=== PATIENT | female | born 1950 | race Caucasian/White ===

== ENCOUNTER 2016-09-24 10:07 | Day surgery (SDC) | payer MEDICARE, BC ==
[2016-09-22 15:29] LABS: HEMATOCRIT 36.5 % (36.0-48.0); HEMOGLOBIN 13.1 g/dL (12.0-16.0)
[2016-09-22 15:41] LABS: BUN (BLOOD UREA NITROGEN) 24 MG/DL (6-23); CALCIUM, SERUM 9.3 MG/DL (8.5-10.4); CHLORIDE, SERUM 104 MMOL/L (96-112); CO2 (CARBON DIOXIDE) 25 MMOL/L (24-34); GFR AFRICAN AMERICAN 54 ML/MIN (>=60); GFR NON AFRICAN AMERICAN 47 ML/MIN (>=60); GLUCOSE, SERUM 232 MG/DL (60-99); POTASSIUM, SERUM 4.2 MMOL/L (3.5-5.3); SODIUM, SERUM 140 MMOL/L (135-148)
[~2016-09-24 10:07] MED LIST: ASAB PO; CO Q-10100 MG PO; CORDARONE PO; CRESTOR20 MG PO; D 5000; DIABETA5 PO; DSS PO; FLEXERIL5 MG PO; GLUCOPHAGE1000 MG PO; GLUCPH PO; KRILLOIL PO; LEVEMFLXPN SC; LIPITOR80 MG PO; LOP25 PO; LOTE10 PO; MOBIC15 MG PO; NITROSTAT0.4 MG SL; NORCO1 TA2 PO; NOVOPEN SC; PLAVIX PO; VICODINTAB PO; VITAMIN D31000 UNIT PO; ZOCOR40 PO
[2016-10-12] MEDS ORDERED: [UNRECOGNIZED DRUG - OTHER] (11:01)
[2016-10-12] MEDS ORDERED: DIOV80 PO (11:03)
[2016-10-12] MEDS ORDERED: PLAVIX PO (11:04)
[2016-10-12] MEDS ORDERED: PLAVIX300 MG PO (14:17)
[2016-10-20] MEDS ORDERED: TRADJENTA5 MG PO (13:02)
[2017-01-17] MEDS ORDERED: CARTIA XT240 MG/24 PO (10:00)
== END 2016-09-26 13:20 | disposition home or self-care (01) ==
LOC: SDC 10:07
PROVIDERS: Student in an Organized Health Care Education/Training Program
DX: I65.23 Occlusion and stenosis of bilateral carotid arteries (principal); I10 Essential (primary) hypertension; E11.51 Type 2 diabetes mellitus with diabetic peripheral angiopathy without gangrene; E11.22 Type 2 diabetes mellitus with diabetic chronic kidney disease; N18.9 Chronic kidney disease, unspecified; I25.10 Atherosclerotic heart disease of native coronary artery without angina pectoris; M79.7 Fibromyalgia; E78.00 Pure hypercholesterolemia, unspecified; E66.01 Morbid (severe) obesity due to excess calories; G89.29 Other chronic pain; Z53.09 Procedure and treatment not carried out because of other contraindication; Z87.891 Personal history of nicotine dependence; Z90.5 Acquired absence of kidney; Z95.1 Presence of aortocoronary bypass graft; Z68.41 Body mass index [BMI] 40.0-44.9, adult; Z88.0 Allergy status to penicillin; Z88.1 Allergy status to other antibiotic agents; Z88.8 Allergy status to other drugs, medicaments and biological substances; Z79.82 Long term (current) use of aspirin; Z79.899 Other long term (current) drug therapy; Z90.49 Acquired absence of other specified parts of digestive tract; Z87.442 Personal history of urinary calculi; Z98.890 Other specified postprocedural states
CPT/HCPCS: 80048; 82962; 85014; 85018; 93005; A9270; J0360; J2405; J3010; J3370; Q9967; J0330